=== PATIENT | female | born 1965 | race Caucasian/White ===

== ENCOUNTER 2016-04-03 07:15 | Day surgery (SDC) | payer MEDICARE, MEDICAID ==
--- NOTE | 2016-03-31 14:23 | PCM.ANEPRE ---
Anesthesia Pre-Op Review Anesthesia Recommendations: Proceed with Procedure Additional Comments This is a 50 y/o F with nonischemic cardiomyopathy, EF 15%, for bunionectomy. Of note, dilated cardiomyopathy is all left sided dysfunction on ECHO 2016. Per horse identifier, she is optimized medically for procedure, recommending only magnet over pacer to turn off tachy-therapy for AICD. I concur. OK to proceed. For bunionectomy, one could imagine a regional approach to the case; that said, she tolerated a GA in 2014 without any documented problem. Therefore , patient preference and anesthesiologist preference should be the more critical component to anesthetic plan. All said, she certainly represents a high risk patient but no further optimization will change this. Celestino Arenas MD Mar 31, 2016 14:23
[~2016-04-03] VITALS: Ht 154.9 cm; Wt 84.1 kg
--- NOTE | 2016-04-03 06:42 | PCM.HPANE ---
Patient Data Surgeon Admitting Provider: Attending Provider:Ismael Smith DPM Primary Care Physician:Moni Corona Other Provider: Reason for Visit Right Foot Hallux Abducto Valgus Ht/WT & BMI Height (Feet): 5 Height (Inches): 1 Weight (Kilograms): 82.55 Body Mass Index 34.00 Allergies Coded Allergies: hydrocodone (Verified Allergy, Unknown, 12/29/15) PATIENT HAS RECEIVED OXYCODONE AND HYDROMORPHONE IN PAST latex (Verified Allergy, Unknown, 12/29/15) Past Anesthesia History Anesthesia History: Denies:: Anesthesia Reactions Diabetes History Hx Diabetes?: No MRSA MRSA: No Medications Blood Thinner: Aspirin Reported Medications Hydroxyzine Pamoate (Vistaril)25 Mg Iexiuko48 Mg PO TID PRN For Itching Ref 0 04/03/16 oxyCODONE-Acetaminophen 5-325 mg 1 Each Tablet1-2 Tab PO Q6H PRN For Pain Ref 0 04/03/16 Alprazolam 0.5 Mg Tablet0.5 Mg PO TID PRN For Anxiety Ref 0 04/03/16 Spironolactone 25 Mg Efqmpf89 Mg PO DAILY #30 TABLET Ref 0 03/31/16 Albuterol HFA (Proair HFA)8.5 Gm Hfa.aer.ad2 Puffs INHALATION Q4H PRN For Shortness of Breath #1 INHALER 03/31/16 Oxybutynin Chloride ER 15 Mg Tab.er.2415 Mg PO DAILY Ref 0 03/31/16 Nitroglycerin SL (Nitrostat)0.4 Mg Tab.subl0.4 Mg SL Q5MIN PRN For Chest Pain # 1 BOTTLE 03/31/16 Methotrexate Sodium (Methotrexate)2.5 Mg Khqvdi72 Mg PO BID once weekly only 03/31/16 Pregabalin (Lyrica)75 Mg Uocygve79 Mg PO BID 30 Days Ref 0 03/31/16 Atorvastatin (Lipitor)80 Mg Enittd37 Mg PO DAILY Ref 0 03/31/16 Levothyroxine 88 Mcg Elzihl50 Mcg PO DAILY Ref 0 03/31/16 Furosemide (Lasix)20 Mg Gxhmec12 Mg PO DAILY 30 Days Ref 0 03/31/16 Sacubitril/Valsartan (Entresto 49 mg-51 mg Tablet)49 Mg-51 Mg Tablet1 Each PO BID 03/31/16 Digoxin 125 Mcg Iazvad509 Mcg PO DAILY #30 TABLET Ref 0 03/31/16 Duloxetine (Cymbalta)60 Mg Capsule.dr60 Mg PO DAILY Ref 0 03/31/16 Carvedilol (Coreg)12.5 Mg Nwqmwb71.75 Mg PO BID Ref 0 03/31/16 Clobetasol Propionate/Emoll (Clobetasol Emollient 0.05% Crm)15 Gm Cream..g.1 Appl TOP BID #1 TUBE 03/31/16 Aspirin 81 Mg Shvtsy83 Mg PO DAILY Ref 0 03/31/16 Discontinued Reported Medications Losartan Potassium 100 Mg Ydqdff203 Mg PO 01/04/16 Carvedilol 12.5 Mg Vvxnmh84.75 Mg PO BID Ref 0 01/04/16 Spironolactone 25 Mg Fxkrtd85 Mg PO DAILY #30 TABLET Ref 0 06/14/14 Duloxetine (Cymbalta)30 Mg Capsule.dr60 Mg PO DAILY Ref 0 07/22/13 Meloxicam 15 Mg Lqywdp87 Mg PO DAILY 30 Days Ref 0 07/22/13 Pregabalin (Lyrica)75 Mg Xuiyjjo57 Mg PO BID 30 Days Ref 0 07/22/13 Levothyroxine 50 Mcg Evhfcq27 Mcg PO DAILY 30 Days Ref 0 07/22/13 Simvastatin 40 Mg Xtzsri05 Mg PO HS 30 Days Ref 0 07/22/13 Digoxin (Digox)250 Mcg Rsatia731 Mcg PO DAILY 30 Days Ref 0 07/22/13 Nitroglycerin SL (Nitrostat)0.4 Mg Tab.subl0.4 Mg SL Q5MIN PRN For Chest Pain # 1 BOTTLE 07/22/13 Aspirin (Aspir 81)81 Mg Tablet.dr81 Mg PO DAILY Ref 0 07/22/13 Albuterol HFA (Proair HFA)8.5 Gm Hfa.aer.ad2 Puffs IH Q4 PRN For Wheezing #1 INHALER 07/22/13 Discontinued Scripts oxyCODONE-Acetaminophen 5-325 mg 1 Each Tablet0.5-1 Tab PO Q6H PRN For Cough # 10 TABLET Ref 0 Prov:Perri Slater MD 02/15/16 Prednisone (PredniSONE)20 Mg Irkrth91 Mg PO DAILY #6 TABLET Ref 0 60mg 02/15 and 02/16 Prov:Perri Slater MD 02/15/16 oxyCODONE-Acetaminophen 5-325 mg 1 Each Tablet1 Tab PO Q6H PRN For Pain #10 TABLET Ref 0 Prov:LindaHussain mcelroy DO 01/04/16 Gabapentin 300 Mg Jbsedtd049 Mg PO TID PRN leg pain #20 CAPSULE Ref 0 Prov:Hussain Holman DO 01/04/16 Cyclobenzaprine 5 Mg Tablet5 Mg PO HS PRN Spasm #14 TABLET Prov:Jose Billings MD 12/29/15 History History of ENT Problems?: Yes HEENT History: Positive for:: Sinus Problem (septo/turbinate resection 06/2014 here) Hx of Heart Problems?: Yes Cardiovascular History: Positive for:: AICD (device sheet in chart, placed 2010) Cardiac Surgery (pacemaker-non ischemic cardiomyopathy) Congestive Heart Failure Hypertension Hx of Respiratory Problem?: Yes Respiratory History: Positive for:: Asthma COPD Denies:: Tuberculosis Use of C-PAP Machine (does not tolerate CPAP) Hx Neurologic Problems?: Yes Neurological History: Positive for:: Headaches Hx of GI Problems?: No Hx of Problems?: Yes Female Hx: Denies:: Currently (hx hysterectomy) Skin History: Positive for:: History Skin Disorders? (psoriasis) Hx Musculoskeletal Problems?: Yes Musculoskeletal History: Positive for:: Musculoskeletal Trauma (bunion current admission problem- right foot) Hx of Psycho/Social Problems?: Yes Psycho Social History: Positive for:: Hx Depression Hx Surgeries?: Yes (Hyst, AICD placement, sinu-turbinates) Hx Any Other Health Problems?: Yes Other History: Positive for:: Thyroid Disease Denies:: Cancer Hx Diabetes: No Hx Alcohol Use: NoHx Substance Use: No Smoking Status: Current Every Day Smoker Have You Smoked inLast 12 mo: Yes Stop/Bang Treated for Sleep Apnea?: Yes Do You Have a CPAP Machine?: Yes S-Snoring: Do You Snore Loudly: No T-Tired: feel tired, fatigued: Yes O-Obsered: Observed not breath: No P-Blood Pressure: treated: No B- Body Mass Index > 35 kg/m2: No A- Age over 50: Yes N- Neck Large Circumference: No G- Gender Male: No WARD Total Score: 2 WARD Risk Assessment: High Risk, =/>3 Yes WARD Category 4 OutPt Procedure: Yes Risk Assessment Category Category 1A: Patient has history of documented sleep apnea, and HAS NOT received any narcotic, sedative or anesthesia administration during this stay. Category 1B: Patient has history of documented sleep apnea, and HAS received any narcotic , sedative or anesthesia administration during this stay Category 2: Patient has SUSPECTED Obstructive Sleep Apnea, and HAS received any narcotic , sedative or anesthesia administration during this stay. Category 3: Patient has SUSPECTED Obstructive Sleep Apnea and HAS NOT received narcotic, sedative or anesthesia administration during this stay. Category 4: Outpatient in Procedural Areas with known sleep apnea or who screen positive for High Risk via the STOP/BANG questionnaire. Exam Exam General Appearance: Alert, Oriented X3, Cooperative, No Acute Distress HEENT/AIRWAY: MP 2 Lungs: Clear to Auscultation, Normal Air Movement Heart: Exam Unremarkable, Regular Rate/Rhythm, No Murmurs/Rubs/Gallops Additional Information obses, thick neck Plan Impression Patient chart reviewed, patient interviewed and anesthestic plan with risks, benefits, and alternatives discussed, and informed consent obtained. NPO Status: 08/30/14 ASA Physical Status: ASA3 Severe Disease Anesthetic Plan: MAC Bene/Risks/Altern/Consents: Yes HP Complete Prior to Induction: Yes Other EF before previous procedures 30%. Most recent EF 15%. Scheduled to see CHF team at for consideration of other therapies once this bunion is healed. For MAC only. Discussed with patient in detail. Vale Cross MD Apr 03, 2016 06:42
[~2016-04-03 07:15] MED LIST: ALBU8.5H2 INHALATION; ASPI-973 PO; ATOR80TA PO; CARV12.5 PO; CLOB15CR3 TOP; CeFAZolin Inj 2 GM in IV Premix 1 EACH IV ONE; DIGO125T73 PO; DULO60CA42 PO; FURO-129 PO; LEVO88TA4 PO; Lactated Ringer's 1,000 ML IV SCH; METH2.5T PO; NITR0.4T SL; OXYB15TA PO; PREG75CA PO; SACU1TAB7 PO; SPIR25TA3 PO
[2016-04-03] MEDS ORDERED: Propofol 10,000 mCg/mL 20 mL Inj ONE (07:16)
[2016-04-03] MEDS ORDERED: fentaNYL-PF 50 mCg/mL 2 mL Inj ONE (07:16)
[2016-04-03] MEDS: Lactated Ringer's 1,000 ML IV SCH ×2 (07:28→09:51)
[2016-04-03 08:02] VITALS: BP 116/58; PULSE 72; RESP 18; O2SAT 96
[2016-04-03] MEDS ORDERED: HYDR25CA PO (08:18)
[2016-04-03] MEDS ORDERED: OXYC1TAB24 PO (08:18)
[2016-04-03] MEDS ORDERED: ALPR0.5T8 PO (08:18)
[2016-04-03] MEDS ORDERED: Lidocaine 1% 50 mL Inj INFILTRATE ONE (09:50)
[2016-04-03] MEDS ORDERED: Bupivacaine-MPF 0.5% 30 mL Inj INFILTRATE ONE (09:50)
[2016-04-03] MEDS ORDERED: Bacitracin Ointment Packet TOPICAL ONE (10:07)
[2016-04-03 10:49] VITALS: BP 116/69; PULSE 77; RESP 16; O2SAT 92
--- NOTE | 2016-04-03 11:00 | PCM.PODPO ---
Podiatry Operative Report Date of Service: Apr 03, 2016 Date of Service Apr 03, 2016 Pre Operative Diagnosis Hallux abductovalgus deformity right foot,. Clavi and onychocryptosis fifth digit right foot Post Operative Diagnosis Same Procedure SERI bunion correction right foot, partial Winograd matrixectomy and exostectomy bilateral borders fifth digit right foot partial Surgeon Surgeon: Ismael Smith DPM Assistants: None Indication for Procedure Same Findings Same Details of Procedure Patient was brought to the operating suite and placed on the table in the supine position. Surgical timeout was observed. Upon initiation of monitored anesthesia care by the anesthesiologist the right forefoot was anesthetized utilizing approximately 10 cc 0.5% Marcaine plain, the block was augmented with 5 cc 1% lidocaine plain intraoperatively. A well-padded pneumatic ankle tourniquet was applied and the foot prepped and draped in the usual sterile manner. Attention was directed to the medial first metatarsal head and neck where a 1 cm incision was made along the long axis of the metatarsal and down to bone. Subperiosteal dissection was performed on the dorsal and plantar aspect of the first metatarsal neck and a planer osteotomy performed just proximal to the sesamoid complex. The head of the first metatarsal was displaced laterally approximately 60% the width of the metatarsal and coaptation and degree of overlap confirmed fluoroscopically. A 2 mm Steinmann pin was then inserted subperiosteal from the incision along the medial aspect of the hallux exiting the toe and was inserted retrogradely into the first metatarsal diaphysis short of the first metatarsocuneiform joint. The fixation of the head of the first metatarsal appeared quite rigid and stable. The hallux was in slight varus as intended, fluoroscopic exam confirmed good bone to bone contact and coaptation with approximately 60% shift of the capital fragment. The Steinmann pin was then cut bent and capped distally. The site was copiously irrigated subcutaneous and skin tissues were reapproximated with 4 -0 Prolene. Attention was then directed to the fifth digit. Linear incisions were made along the medial and lateral aspect of the fifth digit and medial and lateral converging semi-elliptical incisions made excising the nucleated focal hyperkeratoses. The ellipse of tissue was excised and subperiosteal dissection performed exposing the bony exostosis which was resected with a bone rongeur forcep. The site was copiously irrigated, subcutaneous tissues were reapproximated and closed with 4-0 Prolene. Antibiotic ointment Adaptic dressing was applied to both sites followed by a mildly compressive gauze bandage with extra material in the arch to offload the first metatarsal osteotomy. The tourniquet was released and normal perfusion returned promptly to all digits. The patient left the operative suite in apparently satisfactory condition there were no complications. Grafts, Implants: Implants-See Implant Record Complications There were no periprocedural complications identified. Condition Stable Anesthetic Administered: MAC Drains: None Catheters: None Output, Estimated Blood Loss: 0 Blood Admin during surgery: No Surgical Cast or Splint: Post-op Boot Surgical Specimen Removed: No Specimen sent to Pathology: No Post Operative Plan , Written and verbal postoperative instructions have been provided. Patient will return in 5 days for recheck Ismael Smith DPM Apr 03, 2016 11:00
[2016-04-03] MEDS ORDERED: Lactated Ringer's 500 ML IV PRN (11:01)
[2016-04-03] MEDS ORDERED: Lactated Ringer's 1,000 ML IV SCH (11:01)
[2016-04-03] MEDS ORDERED: Labetalol 5 mg/mL 4 mL Inj IV PRN (11:05)
[2016-04-03] MEDS ORDERED: Dexamethasone 4 mg/mL Inj IVPUSH PRN (11:05)
[2016-04-03] MEDS ORDERED: fentaNYL-PF 50 mCg/mL 2 mL Inj IVPUSH PRN (11:05)
[2016-04-03] MEDS ORDERED: hydrALAZINE 20 mg/mL Inj IVPUSH PRN (11:05)
[2016-04-03] MEDS ORDERED: HYDROmorphone 1 mg/mL Inj IVPUSH PRN (11:05)
[2016-04-03] MEDS ORDERED: MetoCLOpramide 5 mg/mL 2 mL Inj IVPUSH PRN (11:05)
[2016-04-03] MEDS ORDERED: Atropine 0.4 mg/mL Inj IVPUSH PRN (11:05)
[2016-04-03] MEDS ORDERED: Ondansetron 2 mg/mL 2 mL Inj IVPUSH PRN (11:05)
[2016-04-03] MEDS ORDERED: EPHEDrine Sulfate 50 mg/mL Inj IVPUSH PRN (11:05)
[2016-04-03] MEDS ORDERED: Phenylephrine 10,000 mCg/mL Inj IVPUSH PRN (11:05)
--- NOTE | 2016-04-03 11:28 | PCM.ANEP1 ---
Post Anesthesia Phase 1 PACU Phase 1 Assessment Date of Service: Apr 03, 2016 Vital Signs Vital Signs Date Time Temp Pulse Resp B/P Pulse Ox O2 Delivery O2 Flow Rate FiO2 04/03/16 10:49 36.4 77 16 116/69 92 Room Air 04/03/16 08:02 36.1 72 18 116/58 96 Room Air 04/03/16 08:02 CPAP/BIPAP Anesthetic Administered: MAC Level of Alertness: Awake, talking CANELA's with Equal Strength: Yes Pain: No Nausea or Vomiting: No Oxygen Delivery: Room Air Lungs: Clear to Auscultation, Normal Air Movement Vale Cross MD Apr 03, 2016 11:28
--- NOTE | 2016-04-03 12:33 | PCM.ANEP2 ---
Post Anesthesia Evaluation ASA/CMS Post Anesthesia VS in Patient's Normal Range?: Yes Resp Stable; Airway Patent?: Yes CV Function & Hydration Stable: Yes Mental Status Recovered?: Yes Pain control Satisfactory?: Yes N/V Control Satisfactory?: Yes Vale Cross MD Apr 03, 2016 12:33
[2016-04-03 12:40] VITALS: BP 120/72; PULSE 75; RESP 16; O2SAT 97
== END 2016-04-03 23:59 | disposition home or self-care (01) ==
LOC: SAS 07:15
PROVIDERS: ATTEND Podiatrist
DX: M20.11 Hallux valgus (acquired), right foot (principal); L60.0 Ingrowing nail; I42.9 Cardiomyopathy, unspecified; E78.5 Hyperlipidemia, unspecified; G47.33 Obstructive sleep apnea (adult) (pediatric); M79.7 Fibromyalgia; J45.909 Unspecified asthma, uncomplicated; F32.9 Major depressive disorder, single episode, unspecified; E66.9 Obesity, unspecified; I50.9 Heart failure, unspecified; F41.9 Anxiety disorder, unspecified; F17.210 Nicotine dependence, cigarettes, uncomplicated; I11.0 Hypertensive heart disease with heart failure; Z79.51 Long term (current) use of inhaled steroids; Z79.82 Long term (current) use of aspirin; Z95.5 Presence of coronary angioplasty implant and graft; Z95.810 Presence of automatic (implantable) cardiac defibrillator; Z68.34 Body mass index [BMI] 34.0-34.9, adult
CPT/HCPCS: 11750; 28296; 36415; 80162; J0690; J2250; J3010; J7120